=== PATIENT | female | born 1955 | race Caucasian/White ===

== ENCOUNTER 2021-05-14 11:26 | Outpatient (CLI) | payer OTHER ==
--- NOTE | 2021-05-14 14:08 | XRAY Report ---
PROCEDURE: Chest 2 View X-Ray INDICATIONS: COPD ACUTE EXACERBATION TECHNIQUE: 2 view(s) of the chest. COMPARISON: None. FINDINGS: Surgical changes and devices: None. Lungs and pleura: No pleural effusions or pneumothorax. Lungs are clear. Mediastinum: Mediastinal contours are normal. Heart size is normal. Bones and chest wall: No suspicious bony abnormalities. Soft tissues appear unremarkable. IMPRESSION: No acute process. Reviewed by: Felipa Paulino MD on 05/14/2021 2:07 PM PDT Approved by: Felipa Paulino MD on 05/14/2021 2:07 PM PDT Station ID: [id number]
== END 2021-05-14 23:59 | disposition home or self-care (01) ==
LOC: DI.N 11:26
PROVIDERS: ATTEND Family Medicine
DX: J44.1 Chronic obstructive pulmonary disease with (acute) exacerbation (principal)

== ENCOUNTER 2023-05-16 21:34 | Outpatient (CLI) | payer OTHER | END 2023-05-16 23:59 | disposition critical access hospital (66) | LOC: EMS 21:34 | DX: T42.4X2A Poisoning by benzodiazepines, intentional self-harm, initial encounter (principal) | CPT/HCPCS: A0425; A0427 ==

== ENCOUNTER 2023-05-16 22:00 | Emergency (ER) | payer OTHER ==
[2023-05-16] MEDS ORDERED: SODIUM CHLORIDE 0.9% 1,000 ML IV STA ×2 (22:19→23:10)
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
[2023-05-16 22:44] LABS: BASOPHILS # (AUTO) 0.1 10^3/uL (0.0-0.1); EOSINOPHILS # (AUTO) 0.1 10^3/uL (0.0-0.7); EOSINOPHILS % (AUTO) 0.9 %; HCT - HEMATOCRIT 40.6 % (37.0-47.0); HGB - HEMOGLOBIN 12.5 g/dL (12.0-16.0); LYMPHOCYTES # (AUTO) 1.1 10^3/uL (1.5-3.5); MEAN CORPUSCULAR HEMOGLOBIN 28.6 pg (27.0-31.0); MEAN CORPUSCULAR HGB CONC 30.8 g/dL (32.0-36.0); MEAN CORPUSCULAR VOLUME 92.9 fL (81.0-99.0); MEAN PLATELET VOLUME 9.6 fL (7.9-10.8); MONOCYTES # (AUTO) 0.6 10^3/uL (0.0-1.0); MONOCYTES % (AUTO) 8.7 %; NEUTROPHILS % (AUTO) 73.3 %; PLT - PLATELET COUNT 281 10^3/uL (130-450); RED BLOOD COUNT 4.37 10^6/uL (4.20-5.40); RED CELL DISTRIBUTION WIDTH 14.2 % (12.0-15.0); WHITE BLOOD COUNT 6.8 x10^3/uL (4.8-10.8)
[2023-05-16 22:58] LABS: ALBUMIN 4.3 g/dL (3.2-5.5); ALBUMIN/GLOBULIN RATIO 1.8 (1.0-2.2); ALKALINE PHOSPHATASE 56 IU/L (42-121); ALT ALANINE AMINOTRANSFERASE 23 IU/L (10-60); AST ASPARTATE AMINOTRANSFERASE 26 IU/L (10-42); BILIRUBIN,TOTAL 0.5 mg/dL (0.2-1.0); BUN - BLOOD UREA NITROGEN 11 mg/dL (6-20); CALCIUM 8.7 mg/dL (8.5-10.3); CARBON DIOXIDE - CO2 24 mmol/L (21-32); CHLORIDE 109 mmol/L (101-111); CREATININE 0.9 mg/dL (0.4-1.0); ETOH - ETHANOL < 10.0 mg/dL; GFR - MDRD 63 (>89); GLUCOSE 88 mg/dL (70-100); LIPASE 28 U/L (22-51); POTASSIUM 3.9 mmol/L (3.5-5.0); SODIUM 140 mmol/L (135-145); TOTAL PROTEIN 6.7 g/dL (6.7-8.2)
[2023-05-17 00:16] LABS: MUDS CUTOFF CONCENTRATIONS CUTOFF CONC BELOW:
[2023-05-17 00:29] LABS: AMPHETAMINE SCREEN,URINE NEGATIVE (NEGATIVE); BARBITURATE SCREEN,UR POSITIVE (NEGATIVE); BENZODIAZEPINES SCREEN, URINE POSITIVE (NEGATIVE); COCAINE SCREEN URINE NEGATIVE (NEGATIVE); METHADONE SCREEN, URINE NEGATIVE (NEGATIVE); METHAMPHETAMINES SCREEN, URINE NEGATIVE (NEGATIVE); OPIATE SCREEN, URINE NEGATIVE (NEGATIVE); OXYCODONE SCREEN, URINE NEGATIVE (NEGATIVE); PROPOXYPHENE SCREEN, URINE NEGATIVE (NEGATIVE); THC CANNABINOID SCREEN, URINE NEGATIVE (NEGATIVE); TRICYCLIC ANTIDEPRESSANT,URINE NEGATIVE (NEGATIVE)
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
[2023-05-17] MEDS ORDERED: GABAPENTIN 300 MG CAPSULE PO STA (08:01)
[2023-05-17] MEDS ORDERED: PRIMIDONE 50 MG TABLET PO ONE (18:03)
[2023-05-17 19:37] VITALS: BP 177/102; O2SAT 97
[2023-05-17] MEDS ORDERED: PROPRANOLOL ER 80 MG CAPSULE PO SCH (21:00)
[2023-05-18] MEDS ORDERED: PRIMIDONE 50 MG TABLET PO SCH (09:00)
--- NOTE | 2023-05-31 20:50 | ED Physician Documentation ---
ED Addendum - Addendum Addendum: 05/31/23 20:49 Patient monitored while pending placement and transport. Hemodynamically stable, no acute distress. She initially requested her home dose of medications, but cannot remember the name of any of the medications or the dosing and so this was deferred. She was picked up by transport in stable condition
== END 2023-05-17 19:39 ==
LOC: EDUNIT# → ED 22:00
DX: F33.2 Major depressive disorder, recurrent severe without psychotic features (principal); F60.9 Personality disorder, unspecified; F41.9 Anxiety disorder, unspecified; Z20.822 Contact with and (suspected) exposure to COVID-19; Z81.8 Family history of other mental and behavioral disorders
CPT/HCPCS: 36415; 80053; 80306; 80320; 83690; 84443; 85025; 87635; 93005; 99285; A9270; G0425; Q3014